=== PATIENT | male | born 1955 | race Caucasian/White ===

== ENCOUNTER 2018-11-19 09:46 | Day surgery (SDC) | payer OTHER ==
[2018-11-12 16:41] VITALS: BMI 30.5
[2018-11-19] MEDS ORDERED: LIDOCAINE HCL/PF 2% SDV 5ML VIAL ONE (11:44)
[2018-11-19 12:25] VITALS: TEMP 97.5
[2018-11-19 12:43] VITALS: BP 94/70; PULSE 64
--- NOTE | 2018-11-25 12:23 | PATH ---
Surgical Pathology Report Patient Name: MADDIE DALLAS [facility]. Rec. #: [id number] /Age/Gender: 1955 (Age: 63) / M Account: [id number] Location: [facility] Taken: 11/19/2018 Received: 11/19/2018 Reported: 11/25/2018 Physicians: Keke Taylor M.D. Specimen(s) Received A: SECOND PORTION DUODENUM B: ANTRUM C: GE JUNCTION Clinical History Check for varices Postoperative diagnosis: Gastritis, hiatal hernia Final Diagnosis A. DUODENUM, BIOPSY: DUODENAL MUCOSA WITH NO PATHOLOGIC FINDINGS. B. GASTRIC ANTRUM, BIOPSY: MODERATE CHRONIC GASTRITIS WITH FOCAL INTESTINAL METAPLASIA. IMMUNOSTAIN IS NEGATIVE FOR H. PYLORI ORGANISMS. C. GE JUNCTION, BIOPSY: COLUMNAR (GASTRIC-TYPE) MUCOSA SHOWING MODERATE CHRONIC INFLAMMATION. NEGATIVE FOR INTESTINAL METAPLASIA. Electronically Signed Brittaney Pathak M.D. Gross Description A. Received in formalin, labeled "biopsy second portion of duodenum" is a zimmerman, irregular portion of soft tissue measuring 0.2 cm. in greatest dimension. The specimen is submitted in toto in one cassette. B. Received in formalin, labeled "biopsy gastric antrum" is a zimmerman, irregular portion of soft tissue measuring 0.4 cm. in greatest dimension. The specimen is submitted in toto in one cassette. C. Received in formalin, labeled "biopsy GE junction" is a zimmerman, irregular portion of soft tissue measuring 0.4 cm. in greatest dimension. The specimen is submitted in toto in one cassette. 11/20/2018 saudi11/20/2018
== END 2018-11-19 12:37 | disposition home or self-care (01) ==
LOC: FASU-ENDO 09:46
PROVIDERS: ATTEND Internal Medicine Gastroenterology
PROC: 0DB68ZX Excision of Stomach, Via Natural or Artificial Opening Endoscopic, Diagnostic (ICD-10-PCS; 2018-11-19)
PROC: 0DB48ZX Excision of Esophagogastric Junction, Via Natural or Artificial Opening Endoscopic, Diagnostic (ICD-10-PCS; 2018-11-19)
PROC: 0DB98ZX Excision of Duodenum, Via Natural or Artificial Opening Endoscopic, Diagnostic (ICD-10-PCS; principal; 2018-11-19 11:57)
DX: Z13.810 Encounter for screening for upper gastrointestinal disorder (principal); K29.50 Unspecified chronic gastritis without bleeding; K31.89 Other diseases of stomach and duodenum; Z86.19 Personal history of other infectious and parasitic diseases; K44.9 Diaphragmatic hernia without obstruction or gangrene
CPT/HCPCS: 88305-TC; 88342-TC

== ENCOUNTER 2019-03-04 09:11 | Day surgery (SDC) | payer OTHER ==
[2019-02-26 15:47] VITALS: BMI 30.5
[2019-03-04] MEDS ORDERED: PROPOFOL 20 ML ONE (12:00)
[2019-03-04 13:06] VITALS: BP 103/76
[2019-03-04 13:08] VITALS: PULSE 94; TEMP 98
--- NOTE | 2019-03-06 15:15 | PATH ---
Surgical Pathology Report Patient Name: MADDIE DALLAS [facility]. Rec. #: [id number] /Age/Gender: 1955 (Age: 63) / M Account: [id number] Location: [facility] Taken: 03/04/2019 Received: 03/04/2019 Reported: 03/06/2019 Physicians: Keke Taylor M.D. Specimen(s) Received A: SECOND PORTION DUODENUM B: GASTRIC ANTRUM Clinical History Gastritis Postoperative diagnosis: Gastritis, gastric erosions Final Diagnosis A. SECOND PORTION OF DUODENUM, BIOPSY: DUODENAL MUCOSA WITH NO PATHOLOGIC FINDINGS. B. GASTRIC ANTRUM, BIOPSY: MILD CHRONIC GASTRITIS WITH FEATURES OF REACTIVE GASTROPATHY. IMMUNOSTAIN IS NEGATIVE FOR H. PYLORI ORGANISMS. Electronically Signed Brittaney Pathak M.D. Gross Description A. Received in formalin, labeled "biopsy second portion of duodenum" are 2 zimmerman, irregular portions of soft tissue measuring 0.2 and 0.3 cm. in greatest dimension. The specimens are submitted in toto in one cassette. B. Received in formalin, labeled "biopsy gastric antrum" are 3 zimmerman, irregular portions of soft tissue ranging from 0.2-0.4 cm. in greatest dimension. The specimens are submitted in toto in one cassette. 03/05/2019 saudi03/05/2019
== END 2019-03-04 13:15 | disposition home or self-care (01) ==
LOC: FASU-ENDO 09:11
PROVIDERS: ATTEND Internal Medicine Gastroenterology
PROC: 0DB68ZX Excision of Stomach, Via Natural or Artificial Opening Endoscopic, Diagnostic (ICD-10-PCS; 2019-03-04)
PROC: 0DB98ZX Excision of Duodenum, Via Natural or Artificial Opening Endoscopic, Diagnostic (ICD-10-PCS; principal; 2019-03-04 12:13)
DX: Z13.810 Encounter for screening for upper gastrointestinal disorder (principal); K29.50 Unspecified chronic gastritis without bleeding; K31.9 Disease of stomach and duodenum, unspecified
CPT/HCPCS: 88305-TC; 88342-TC

== ENCOUNTER 2019-03-11 08:46 | Day surgery (SDC) | payer OTHER ==
[2019-03-11 09:29] VITALS: BMI 29.9
[2019-03-11] MEDS ORDERED: PROPOFOL 20 ML ONE ×4 (11:13)
[2019-03-11 12:10] VITALS: BP 122/78; PULSE 75; TEMP 98.2
--- NOTE | 2019-03-16 16:38 | PATH ---
Surgical Pathology Report Patient Name: MADDIE DALLAS [facility]. Rec. #: [id number] /Age/Gender: 1955 (Age: 63) / M Account: [id number] Location: [facility] Taken: 03/11/2019 Received: 03/11/2019 Reported: 03/16/2019 Physicians: Keke Taylor M.D. Specimen(s) Received A: POLYP TRANSVERSE COLON B: POLYP DISTAL TRANSVERSE COLON Clinical History Screening Postoperative diagnosis: Diverticulosis, colon polyps Final Diagnosis A. TRANSVERSE COLON, POLYP, BIOPSY: TUBULAR ADENOMA. B. DISTAL TRANSVERSE COLON, POLYP, BIOPSY: TUBULAR ADENOMA. Electronically Signed Keke Ruiz M.D. Gross Description A. Received in formalin, labeled "transverse colon polyp" is a zimmerman, irregular portion of soft tissue measuring 0.4 cm. in greatest dimension. The specimen is submitted in toto in one cassette. B. Received in formalin, labeled "distal transverse colon polyp" is a zimmerman, irregular portion of soft tissue measuring 0.3 cm. in greatest dimension. The specimen is submitted in toto in one cassette. 03/13/2019 saudi03/13/2019
== END 2019-03-11 12:10 | disposition home or self-care (01) ==
LOC: FASU-ENDO 08:46
PROVIDERS: ATTEND Internal Medicine Gastroenterology
PROC: 0DBL8ZX Excision of Transverse Colon, Via Natural or Artificial Opening Endoscopic, Diagnostic (ICD-10-PCS; 2019-03-11)
PROC: 0DBL8ZX Excision of Transverse Colon, Via Natural or Artificial Opening Endoscopic, Diagnostic (ICD-10-PCS; principal; 2019-03-11 11:15)
DX: D12.3 Benign neoplasm of transverse colon (principal); K57.30 Diverticulosis of large intestine without perforation or abscess without bleeding; K64.8 Other hemorrhoids; Z12.11 Encounter for screening for malignant neoplasm of colon; D64.9 Anemia, unspecified
CPT/HCPCS: 88305-TC